=== PATIENT | male | born 2000 | race African-American/Black ===

== ENCOUNTER 2024-07-14 04:10 | Emergency (ER) | payer MEDICAID ==
[~2024-07-14] VITALS: Ht 182.9 cm; Wt 91.0 kg
[2024-07-14 04:11] VITALS: O2SAT 98
[2024-07-14] MEDS: FAMOTIDINE 20MG TABLET PO ONE (06:32)
[2024-07-14] MEDS: ONDANSETRON 4MG ODT PO ONE (06:32)
[2024-07-14 07:19] LABS: HEMATOCRIT. 43.8 % (42.0-52.0); HEMOGLOBIN. 14.4 g/dL (14.0-18.0); MEAN CORPUSCULAR HEMOGLOBIN 29.3 pg (28.0-32.0); MEAN CORPUSCULAR HGB CONC 32.8 g/dL (31.0-37.0); MEAN CORPUSCULAR VOLUME 89.3 fL (80.0-94.0); MEAN PLATELET VOLUME 8.4 fl (7.4-10.4); PLATELET 303 x1000/uL (130-400); RED BLOOD CELL COUNT 4.91 mill/uL (4.7-6.1); RED CELL DISTRIBUTION WIDTH 12.8 % (11.6-14.6); WHITE BLOOD COUNT 10.4 x1000/uL (4.5-11.0)
[2024-07-14 07:26] LABS: CHLORIDE 107 mEq/L (98-107)
[2024-07-14 07:27] LABS: POTASSIUM 3.7 mEq/L (3.5-5.1); SODIUM 141 mEq/L (136-145)
[2024-07-14 07:28] LABS: CALCIUM 9.7 mg/dL (8.7-10.4); CARBON DIOXIDE 23 mEq/L (21-32)
[2024-07-14 07:33] LABS: CREATININE 0.9 mg/dL (0.6-1.3); GLUCOSE 109 mg/dL (70-105); UREA NITROGEN BLOOD 10 mg/dL (9-23)
[2024-07-14 07:35] LABS: ALANINE AMINOTRANSFERASE 24 IU/L (10-49); ALBUMIN 4.7 g/dL (3.2-4.8); ASPARTATE AMINOTRANSFERASE 16 IU/L (<34); BILIRUBIN DIRECT 0.2 mg/dL (<=3.0)
[2024-07-14 07:36] LABS: BILIRUBIN TOTAL 0.6 mg/dL (0.1-1.0); PROTEIN TOTAL 7.5 g/dL (6.0-8.3)
[2024-07-14 07:48] LABS: DIFFERENTIAL COMMENT 1
[2024-07-14] MEDS ORDERED: ONDA-239 PO (08:17)
[2024-07-14 08:26] VITALS: BP 123/63; PULSE 96; RESP 18; TEMP 37; O2SAT 98
[2024-07-14 16:58] LABS: PLATELET ESTIMATE NORMAL
== END 2024-07-14 08:48 | disposition home or self-care (01) ==
LOC: ER 04:10
DX: Q43.3 Congenital malformations of intestinal fixation (principal)
CPT/HCPCS: 99284; 74176; 80076; 80048; 83690; 85025; 36415; Q0162

== ENCOUNTER 2024-08-18 10:15 | Inpatient (IN) | payer MEDICAID ==
[~2024-08-18] VITALS: Ht 185.4 cm; Wt 67.1 kg
[~2024-08-18 10:15] MED LIST: ONDA-239 PO
[2024-08-18 10:59] LABS: BASOPHILS % 0.3 % (0.0-2.0); EOSINOPHILS % 0.6 % (0.0-5.0); HEMATOCRIT. 47.4 % (42.0-52.0); HEMOGLOBIN. 15.2 g/dL (14.0-18.0); LYMPHOCYTES % 15.9 % (20.0-50.0); MEAN CORPUSCULAR HEMOGLOBIN 28.9 pg (28.0-32.0); MEAN CORPUSCULAR VOLUME 90.5 fL (80.0-94.0); MEAN PLATELET VOLUME 8.5 fl (7.4-10.4); MONOCYTES % 4.9 % (2.0-8.0); NEUTROPHILS % 78.3 % (40.0-76.0); PLATELET 353 x1000/uL (130-400); RED BLOOD CELL COUNT 5.24 mill/uL (4.7-6.1); RED CELL DISTRIBUTION WIDTH 12.6 % (11.6-14.6); WHITE BLOOD COUNT 11.4 x1000/uL (4.5-11.0)
[2024-08-18 11:00] LABS: CHLORIDE 107 mEq/L (98-107); POTASSIUM 3.9 mEq/L (3.5-5.1); SODIUM 140 mEq/L (136-145)
[2024-08-18 11:01] LABS: CARBON DIOXIDE 23 mEq/L (21-32)
[2024-08-18 11:02] LABS: CALCIUM 10.5 mg/dL (8.7-10.4)
[2024-08-18 11:06] LABS: GLUCOSE 130 mg/dL (70-105); UREA NITROGEN BLOOD 8 mg/dL (9-23)
[2024-08-18 11:08] LABS: ALANINE AMINOTRANSFERASE 23 IU/L (10-49); ALBUMIN 4.7 g/dL (3.2-4.8); ASPARTATE AMINOTRANSFERASE 25 IU/L (<34); BILIRUBIN DIRECT 0.2 mg/dL (<=3.0); BILIRUBIN TOTAL 0.8 mg/dL (0.1-1.0); PROTEIN TOTAL 7.7 g/dL (6.0-8.3)
[2024-08-18 11:10] LABS: LACTIC ACID 3.3 mmol/L (0.4-2.0)
[2024-08-18] MEDS: FAMOTIDINE 20MG/2ML VIAL IV ONE (11:32)
[2024-08-18] MEDS: METOCLOPRAMIDE HCL 10MG/2ML VIAL IV ONE (11:32)
[2024-08-18] MEDS: KETOROLAC 30MG/ML VIAL IV ONE (11:32)
[2024-08-18] MEDS: MORPHINE SULFATE 2 MG/ML INJ (NOT FOR IM USE) IV ONE (11:33)
[2024-08-18] MEDS: SODIUM CHLORIDE 0.9% 1,000 ML IV ONE ×2 (11:33→14:15)
[2024-08-18 13:00] LABS: CLARITY URINE CLOUDY (CLEAR); COLOR URINE YELLOW (YELLOW); GLUCOSE URINE NEGATIVE (NEGATIVE); KETONES URINE 1+ (NEGATIVE); LEUKOCYTE ESTERASE URINE NEGATIVE (NEGATIVE); NITRITE URINE NEGATIVE (NEGATIVE); OCCULT BLOOD URINE NEGATIVE (NEGATIVE); PH URINE 7.5 (4.5-8.0); PROTEIN URINE TRACE (NEGATIVE); SPECIFIC GRAVITY URINE 1.021 (1.005-1.030); UROBILINOGEN URINE 0.2 E.U./dL (0.2-1.0)
[2024-08-18 13:54] LABS: MUCUS URINE 3+ /lpf (NONE/TRACE); SQUAMOUS EPITHELIAL CELL URINE RARE /lpf (RARE/1+)
[2024-08-18 13:55] LABS: RBC URINE NONE SEEN /hpf (0-2); WBC URINE 0-2 /hpf (0-2)
[2024-08-18 13:56] LABS: BACTERIA URINE TRACE
[2024-08-18] MEDS: ONDANSETRON HCL 4MG/2ML INJ IV ONE (14:15)
[2024-08-18] MEDS: IOHEXOL-300 100 ML BOTTLE ONE (15:13)
[2024-08-18] MEDS ORDERED: CLONIDINE 0.1MG TABLET PO PRN (17:00)
[2024-08-18] MEDS ORDERED: DEXTROSE 50% WATER 50ML SYRINGE IV PRN (17:00)
[2024-08-18] MEDS ORDERED: GUAIFENESIN 200MG/10ML SUGAR FREE UDC PO PRN (17:00)
[2024-08-18] MEDS ORDERED: NA PHOS,M-B/NA PHOS,DI-BA ENEMA 118ML PR PRN (17:00)
[2024-08-18] MEDS ORDERED: ONDANSETRON HCL 4MG/2ML INJ IV PRN (17:00)
[2024-08-18] MEDS ORDERED: IPRATROPIUM/ALBUTEROL 0.5-3(2.5)MG/3ML NEB HHN PRN (17:00)
[2024-08-18] MEDS ORDERED: DICYCLOMINE HCL 10MG/ML 2ML VIAL IM PRN (17:00)
[2024-08-18] MEDS ORDERED: MAGNESIUM/ALUMINUM HYDROXIDE/SIMETHICONE 30ML UDC PO PRN (17:00)
[2024-08-18] MEDS ORDERED: ACETAMINOPHEN 325MG TABLET PO PRN ×2 (17:00)
[2024-08-18] MEDS ORDERED: DOCUSATE SODIUM 100MG CAPSULE PO PRN (17:00)
[2024-08-18] MEDS ORDERED: NALOXONE HCL 0.4MG/ML VIAL IV PRN (17:00)
[2024-08-18 17:21] LABS: PHOSPHORUS 1.4 mg/dL (2.5-4.9)
[2024-08-18] MEDS: MORPHINE SULFATE 2 MG/ML INJ (NOT FOR IM USE) IV PRN (18:37)
[2024-08-18] MEDS: BLOOD SUGAR DIAGNOSTIC STRIP TEST SCH (22:00)
[2024-08-18 22:37] LABS: CREATINE KINASE 153 IU/L (46-171)
[2024-08-18 22:39] LABS: HCG SCREEN NEGATIVE
[2024-08-18 22:52] LABS: TROPONIN I HIGH SENSITIVITY < 4 ng/L (3.0-53)
[2024-08-18] MEDS: METOCLOPRAMIDE HCL 5MG TABLET PO SCH (22:55)
[2024-08-18] MEDS: PANTOPRAZOLE SODIUM 40 MG/VIAL IV SCH (22:55)
[2024-08-18] MEDS: POTASSIUM PHOSPHATE 30 MMOL in DEXT 5% WATER 490 ML IV NR (22:55)
[2024-08-18] MEDS: SODIUM CHLORIDE 0.9% 1,000 ML IV SCH (22:56)
[2024-08-19 07:19] LABS: BASOPHILS % 0.1 % (0.0-2.0); HEMATOCRIT. 43.3 % (42.0-52.0); HEMOGLOBIN. 14.3 g/dL (14.0-18.0); LYMPHOCYTES % 16.7 % (20.0-50.0); MEAN CORPUSCULAR HEMOGLOBIN 29.3 pg (28.0-32.0); MEAN CORPUSCULAR VOLUME 88.7 fL (80.0-94.0); MEAN PLATELET VOLUME 8.8 fl (7.4-10.4); MONOCYTES % 8.7 % (2.0-8.0); NEUTROPHILS % 74.5 % (40.0-76.0); PLATELET 295 x1000/uL (130-400); RED BLOOD CELL COUNT 4.88 mill/uL (4.7-6.1); RED CELL DISTRIBUTION WIDTH 12.9 % (11.6-14.6); WHITE BLOOD COUNT 10.3 x1000/uL (4.5-11.0)
[2024-08-19 07:49] LABS: CALCIUM 10.2 mg/dL (8.7-10.4); CHLORIDE 109 mEq/L (98-107); POTASSIUM 3.8 mEq/L (3.5-5.1); SODIUM 142 mEq/L (136-145)
[2024-08-19 07:50] LABS: CARBON DIOXIDE 24 mEq/L (21-32); TROPONIN I HIGH SENSITIVITY 4 ng/L (3.0-53)
[2024-08-19 07:54] LABS: T4 FREE 1.04 ng/dL (0.89-1.76)
[2024-08-19 07:55] LABS: CREATINE KINASE 143 IU/L (46-171); CREATININE 0.9 mg/dL (0.6-1.3); GLUCOSE 102 mg/dL (70-105); THYROID STIMULATING HORMONE 0.38 uIU/mL (0.55-4.78); TRIGLYCERIDE 52 mg/dL (0-150); UREA NITROGEN BLOOD 8 mg/dL (9-23)
[2024-08-19 07:56] LABS: LDL CHOLESTEROL 84 mg/dL (5-100)
[2024-08-19 07:57] LABS: CHOLESTEROL 155 mg/dL (<200); HDL CHOLESTEROL 61 mg/dL (>55)
[2024-08-19] MEDS: MVI, ADULT NO.1 10 ML, FOLIC ACID 1 MG, THIAMINE HCL 100 MG in SODIUM CHLORIDE 0.9% 1,0... IV SCH (09:31)
[2024-08-19 10:24] VITALS: BP 129/82; PULSE 68; RESP 18; TEMP 36.9
[2024-08-19 11:28] LABS: *AMPHETAMINES SCREEN URINE NEGATIVE (NEGATIVE)
[2024-08-19 11:29] LABS: *BARBITURATES SCREEN URINE NEGATIVE (NEGATIVE); *BENZODIAZEPINES SCREEN URINE NEGATIVE (NEGATIVE); *COCAINE SCREEN URINE NEGATIVE (NEGATIVE); METHADONE URINE SCREEN NEGATIVE (NEGATIVE)
[2024-08-19 11:30] LABS: CANNABINOID URINE SCREEN PRESUMPTIVE POSITIVE (NEGATIVE); ECSTASY MDMA SCREEN URINE NEGATIVE (NEGATIVE); OPIATES URINE SCREEN PRESUMPTIVE POSITIVE (NEGATIVE); PHENCYCLIDINE URINE SCREEN NEGATIVE (NEGATIVE)
[2024-08-19 12:00] VITALS: BP 109/58; PULSE 60; RESP 20; TEMP 36.7; O2SAT 99
[2024-08-19 16:00] VITALS: BP 108/66; PULSE 20; RESP 20; TEMP 36.8; O2SAT 97
[2024-08-19 18:21] VITALS: BP 113/70; PULSE 68; TEMP 98.1; O2SAT 90
== END 2024-08-19 19:00 | disposition home or self-care (01) | DRG 249 ==
LOC: ER 10:24 → 6EST 15:54 → EDBEDREQ 15:57
PROVIDERS: ADMIT Internal Medicine; ATTEND Internal Medicine
DX: R11.2 Nausea with vomiting, unspecified (principal); E83.39 Other disorders of phosphorus metabolism; E83.42 Hypomagnesemia; D72.829 Elevated white blood cell count, unspecified; K31.89 Other diseases of stomach and duodenum; F12.988 Cannabis use, unspecified with other cannabis-induced disorder
CPT/HCPCS: 36415; 71045; 74177; 80048; 80061; 80076; 80305; 81003; 82550; 82962; 83036; 83605; 83735; 84100; 84439; 84443; 84484; 84703; 85025; 99285; A4606; J1885; J2270; J2405; J2470; J2765; J3411; J3490; J7030; J7060; J8597; Q9967